=== PATIENT | male | born 1955 | race Caucasian/White ===

== ENCOUNTER 2018-12-02 08:39 | Day surgery (SDC) | payer OTHER, BC ==
[2018-12-02] MEDS ORDERED: FENTAnyl 50 MCG/ML VIAL (10:27)
[2018-12-02] MEDS ORDERED: MIDAZOLAM 1 MG/ML 2 ML INJ ×2 (10:28)
== END 2018-12-02 11:19 | disposition home or self-care (01) ==
LOC: GIL 08:39
DX: Z12.11 Encounter for screening for malignant neoplasm of colon (principal); K64.4 Residual hemorrhoidal skin tags
CPT/HCPCS: 45378